=== PATIENT | female | born 1955 | race African-American/Black ===

== ENCOUNTER 2023-09-14 17:20 | Emergency (ER) | payer MEDICARE, OTHER ==
[~2023-09-14] VITALS: Ht 157.5 cm; Wt 91.0 kg
[2023-09-14 18:36] LABS: BASOPHILS % 0.6 % (0.0-2.0); DIFFERENTIAL COMMENT 0; EOSINOPHILS % 0.2 % (0.0-5.0); HEMATOCRIT. 42.6 % (36.0-48.0); HEMOGLOBIN. 14.1 g/dL (12.0-16.0); LYMPHOCYTES % 7.3 % (20.0-50.0); MEAN CORPUSCULAR HEMOGLOBIN 33.6 pg (28.0-32.0); MEAN CORPUSCULAR HGB CONC 33.2 g/dL (31.0-37.0); MEAN CORPUSCULAR VOLUME 101.3 fL (81.0-99.0); MEAN PLATELET VOLUME 9.1 fl (7.4-10.4); MONOCYTES % 6.8 % (2.0-8.0); NEUTROPHILS % 85.1 % (40.0-76.0); PLATELET 163 x1000/uL (130-400); RED CELL DISTRIBUTION WIDTH 15.5 % (11.6-14.6); WHITE BLOOD COUNT 7.4 x1000/uL (4.5-11.0)
[2023-09-14 18:48] LABS: BG BASE EXCESS 3.1 mmol/L (-2.0-2.0); BG CARBOXYHEMOGLOBIN 1.1 % (0.5-1.5); BG DEOXYHEMOGLOBIN 2.8 % (0.0-5.0); BG FRACTION INSPIRED OXYGEN 40; BG HCO3 ACT 29.5 mmol/L (22.0-26.0); BG METHEMOGLOBIN 0.3 % (0.0-1.5); BG OXYGEN SATURATION 97.2 % (92.0-98.5); BG OXYHEMOGLOBIN 95.8 % (94.0-97.0); BG PH 7.372 (7.350-7.450); BG PO2 100.2 mmHg (75.0-100.0); BG SAMPLE SITE RIGHT BRACHIAL; BG TOTAL HEMOGLOBIN 14.4 g/dL (12.0-18.0); BG VENT MODE NASAL CANNULA
[2023-09-14 18:52] LABS: CHLORIDE 106 mEq/L (98-107); POTASSIUM 4.4 mEq/L (3.5-5.1); SODIUM 141 mEq/L (136-145)
[2023-09-14 18:53] LABS: CALCIUM 8.6 mg/dL (8.7-10.4); CARBON DIOXIDE 29 mEq/L (21-32)
[2023-09-14 18:58] LABS: CREATININE 1.6 mg/dL (0.6-1.0); GLUCOSE 111 mg/dL (70-105); UREA NITROGEN BLOOD 42 mg/dL (9-23)
[2023-09-14 18:59] LABS: TROPONIN I HIGH SENSITIVITY 15 ng/L (3.0-34)
[2023-09-14 19:00] LABS: ALANINE AMINOTRANSFERASE 64 IU/L (10-49); ALBUMIN 3.8 g/dL (3.2-4.8); ASPARTATE AMINOTRANSFERASE 50 IU/L (<34); BILIRUBIN DIRECT 0.3 mg/dL (<=3.0); BILIRUBIN TOTAL 0.7 mg/dL (0.1-1.0); PROTEIN TOTAL 7.7 g/dL (6.0-8.3)
[2023-09-14] MEDS ORDERED: IPRATROPIUM/ALBUTEROL 0.5-3(2.5)MG/3ML NEB HHN ONE (19:15)
[2023-09-14 20:42] VITALS: PULSE 68; RESP 18; O2SAT 100
[2023-09-14] MEDS: IPRATROPIUM/ALBUTEROL 0.5-3(2.5)MG/3ML NEB HHN NR (20:42)
[2023-09-14 21:05] VITALS: BP 130/64; PULSE 63; RESP 10; TEMP 98.2
== END 2023-09-14 21:09 | disposition left against medical advice (07) ==
LOC: ER 17:20
DX: R06.02 Shortness of breath (principal); R05.9 Cough, unspecified; R09.81 Nasal congestion; J44.9 Chronic obstructive pulmonary disease, unspecified; I10 Essential (primary) hypertension
CPT/HCPCS: 36415; 36600; 71045; 80048; 80076; 82375; 82805; 83880; 84484; 85025; 93005; 94640; 99285